=== PATIENT | female | born 1990 | race Caucasian/White ===

== ENCOUNTER 2018-07-18 00:06 | Inpatient (IN) | payer MEDICAID ==
[~2018-07-18 00:06] MED LIST: Acetaminophen 325 MG Tab PO PRN; Carboprost Tromethamine 250 MCG/1 ML Amp IM PRN; Lactated Ringers 1,000 ML IV SCH; Lidocaine 1% 30 ML SDV INJECT PRN; Methylergonovine 0.2 MG/1 ML Amp IM PRN; Misoprostol 400 MCG (4 X 100 MCG TAB) RECTAL PRN; Ondansetron 4 MG/2 ML SDV IV PRN; Oxytocin/Normal Saline 30 UNIT/500 ML BAG IV SCH; Penicillin G Potassium 5 MILLUNITS in Sodium Chloride 0.9% 100 ML IV ONE; Sodium Chloride 0.9% 10 ML Syringe FLUSH PRN; Tranexamic Acid 1,000 MG in Sodium Chloride 0.9% 100 ML IV PRN
[2018-07-18] MEDS: Lactated Ringers 1,000 ML IV SCH ×4 (01:25→20:49)
[2018-07-18] MEDS: Misoprostol 25 MCG (1/4 of 100 MCG) Tab VAG PRN ×4 (01:35→14:15)
[2018-07-18] MEDS: hydrOXYzine HCl 25 MG Tab PO PRN ×2 (01:35→11:12)
[2018-07-18] MEDS: Penicillin G Potassium 3 MILLUNITS in Sodium Chloride 0.9% 100 ML IV SCH ×3 (05:28→17:30)
[2018-07-18] MEDS ORDERED: Nalbuphine 10 MG/1 ML Vial IM ONE (17:21)
[2018-07-18] MEDS ORDERED: Penicillin G Potassium 5,000,000 Unit Vial ONE (17:36)
[2018-07-18] MEDS ORDERED: Bupivacaine 0.75%/D5W 2 ML Amp ONE (20:15)
[2018-07-18] MEDS ORDERED: fentaNYL 100 MCG/2 ML SDV ONE (20:15)
[2018-07-18] MEDS ORDERED: EPINEPHrine 1 MG/ML SDV ONE (20:16)
[2018-07-18] MEDS ORDERED: fentaNYL 100 MCG/2 ML SDV IVPUSH ONE ×2 (20:35→23:45)
--- NOTE | 2018-07-18 21:13 | PCM.SN ---
- Free Text/Narrative Note: Intrathecal. sitting position, sterile prep and drape. 1% lidocaine w bicarb for skinwheal to L2 L3, 24 ga Pencan x2, no flow. 1% lidocaine w bicarb to L3 L4 interspace, introducer, 24 ga pencan x 1. Pos CSF, neg heme, neg parasthesia. 0.1 ml 1:1000 pf epi, 20 mcg pf sufenta, 30 mcg pf fentanyl and 6 mg of 0.75 % pf bupivacaine injected after CSF aspiration. Pt to L lateral position. Procedure time 2014 to 2049
[2018-07-18] MEDS ORDERED: Docusate Sodium 100 MG Cap PO PRN (23:02)
[2018-07-18] MEDS ORDERED: Benzocaine/Menthol 20%-0.5% Spray 56 GM Canister TOP PRN (23:02)
[2018-07-18] MEDS ORDERED: Simethicone 80 MG Tab.Chew PO PRN (23:02)
[2018-07-18] MEDS: Ibuprofen 800 MG Tab PO PRN (23:48)
--- NOTE | 2018-07-19 05:34 | DEL ---
DATE: 07/18/2018 PREPROCEDURE DIAGNOSES: 1. A 39 and 0/7 weeks' intrauterine . 2. Induction of labor for poor growth. 3. History of gastric bypass. 4. Smoker. 5. History of spontaneous x1. 6. B12 deficiency. 7. High-risk due to above-listed factors. 8. Blood type B positive. Rubella immune. Group B Streptococcus positive. 9. 2, para 0-0-1-0. 10.Velamentous cord insertion. POSTPROCEDURE DIAGNOSES: 1. A 39 and 0/7 weeks' intrauterine . 2. Induction of labor for poor growth. 3. History of gastric bypass. 4. Smoker. 5. History of spontaneous x1. 6. B12 deficiency. 7. High-risk due to above-listed factors. 8. Blood type B positive. Rubella immune. Group B Streptococcus positive. 9. 2, now para 1-0-1-1. 10.Velamentous cord insertion. 11.Repair of first-degree laceration and bilateral labial lacerations. BRIEF HISTORY: A 28-year-old female with the above-listed diagnoses, was brought in for induction of labor because of concern of growth. Please see admission history and physical and records regarding growth being less than the 10th percentile and increasing discordance of growth measurements and normal cord Dopplers. After admission at midnight, she had a total of 4 doses of Cytotec and then proceeded on into normal labor. At approximately 6 to 7 cm dilated, she received an intrathecal for pain management. She had also previously had a dose of Vistaril earlier in the day, Nubain in the evening, and just prior to the intrathecal 50 mcg of fentanyl because she was unable to hold still for the intrathecal. After that, she continued to proceed through labor quite well and baby tolerated well. There was a period of about 4 minutes of bradycardia, which resolved with oxygen, fluid bolus, and turning her on her side. After reaching complete, the baby was essentially with bag of vergara intact and protruding from the vagina. She was set up for delivery, and after pushing for probably 20 minutes, we had a successful vaginal delivery. Details below. DESCRIPTION OF PROCEDURE: With the patient in dorsal supine position, she delivered a viable female in the OA position over an intact perineum. Amniotic fluid sac ruptured at the same time that the baby's head was being delivered. was dried, stimulated, and mouth and nose were bulb suctioned. Baby had poor respiratory effort, and 3-vessel umbilical cord was doubly clamped and cut, and baby taken over to the warmer prior to 45 seconds of life, and nurses attended to the baby, and Dr. Lazar was also called in to assist and arrived within the first 3 minutes or so of life. Cord blood sample obtained. The placenta was being expressed, and velamentous cord insertion was known, therefore, I manually removed the placenta from the vaginal vault, inspected it, and it was intact. The umbilical vessels remained attached to the membranous side of the placenta. Prior to delivery of that, I had collected cord blood sample. The labia and vagina were inspected, and there was significant bleeding from the right sidewall laceration. This was made hemostatic with [id number] 3-0 Vicryl suture. Same stitch was then used to repair a small vaginal tear of approximately 1 cm. Another stitch of 3-0 Vicryl was used to repair each of the bilateral labial lacerations as well as a small first-degree midline laceration. Hemostasis was noted, and repair was cosmetically satisfactory. The patient tolerated well. No additional anesthesia was needed. Mother and baby were in good condition. ESTIMATED BLOOD LOSS: 400 mL. COMPLICATIONS: None. FINDINGS: Viable female infant. scores of 2, 6, and 9. Weight 2875 grams. DISPOSITION: Mother and baby staying in the room at this time. Mother will start . [facility] /[id number] DIOMEDES
[2018-07-19] MEDS: Penicillin G Potassium 3 MILLUNITS in Sodium Chloride 0.9% 100 ML IV SCH (06:21)
[2018-07-19] MEDS: Ferrous Sulfate 325 MG Tab PO SCH (08:38)
[2018-07-19] MEDS: Prenatal Multivitamin with Calcium/Folic Acid/Iron Tab PO SCH (08:38)
[2018-07-19] MEDS: Ibuprofen 800 MG Tab PO PRN ×2 (08:39→20:57)
[2018-07-19] MEDS ORDERED: Bupivacaine 0.75%/D5W 2 ML Amp INJECT ONE (11:01)
[2018-07-19] MEDS ORDERED: fentaNYL 100 MCG/2 ML SDV ITHECAL ONE (11:01)
[2018-07-19] MEDS ORDERED: EPINEPHrine 1 MG/ML SDV IV ONE (11:01)
--- NOTE | 2018-07-19 21:05 | PN ---
DATE: 07/19/2018 SUBJECTIVE: day #1, status post uncomplicated vaginal delivery with bilateral labial laceration repair as well as first-degree laceration repair. Mother overall has done well through the night. She is up and ambulating, tolerating regular diet, has not had a bowel movement since labor. She has difficulty with voiding. She has been unable to void spontaneously and was straight catheterized for 900 mL. Currently does not have the urge to void and is taking fluids well. No chest pain or shortness of breath. No symptoms of preeclampsia. Bleeding has been well managed and cramping controlled. She is her infant, but having some difficulties, therefore working with a outside sales consultant. OBJECTIVE: General: A well-appearing 28-year-old female. Vital Signs: Temperature is 98.9, pulse 72, blood pressure 113/55, and respiratory rate of 18. Heart: Regular without murmur. Lungs: Clear to auscultation bilaterally. Abdomen: Soft and nontender. Fundus is firm and below the umbilicus. Extremities: No edema, erythema, or tenderness noted. LABORATORY DATA: Hemoglobin is down to 8.9 from a previous 10.4 and platelets down to 171 from a previous 297. ASSESSMENT: 1. day #1, status post spontaneous vaginal delivery. 2. Urinary retention. 3. Obesity. 4. Smoker. 5. B12 deficiency. 6. History of gastric bypass. 7. Anemia of and acute blood loss. PLAN: Continue normal cares. Continue to assess her intake and output and her ability to void spontaneously. Straight catheterize again as necessary. Anticipate that as she is able to have the intrathecal wear off and the swelling that may be present since delivery resolves, she will start voiding on her own again. Dr. Cordova was updated as to the status of this, and he will be covering over the weekend in my absence. [facility] /[id number] DIOMEDES
[2018-07-20] MEDS: Ferrous Sulfate 325 MG Tab PO SCH (08:43)
[2018-07-20] MEDS: Ibuprofen 800 MG Tab PO PRN (08:44)
[2018-07-20] MEDS: Prenatal Multivitamin with Calcium/Folic Acid/Iron Tab PO SCH (08:44)
--- NOTE | 2018-07-20 11:44 | PCM.PNPP ---
- General Info Date of Service: 07/20/18 (PPD # 2 S/P ) Functional Status: Reports: Pain Controlled, Tolerating Diet, Ambulating, Urinating - Review of Systems General: Reports: No Symptoms HEENT: Reports: No Symptoms Pulmonary: Reports: No Symptoms Cardiovascular: Reports: No Symptoms Gastrointestinal: Reports: No Symptoms Genitourinary: Reports: No Symptoms Musculoskeletal: Reports: No Symptoms Skin: Reports: No Symptoms Neurological: Reports: No Symptoms Psychiatric: Reports: No Symptoms - General Info Date of Service: 07/20/18 (PPD # 2 S/P ) - Patient Data Vital Signs - Most Recent: Last Vital Signs Temp 98.4 F 07/20/18 08:00 Pulse 78 07/20/18 08:00 Resp 18 07/20/18 08:00 BP 106/65 07/20/18 08:00 Pulse Ox 98 07/20/18 08:00 Weight - Most Recent: 237 lb I&O - Last 24 Hours: Intake & Output 07/19/18 07/20/18 07/20/18 22:59 06:59 14:59 Output Total 300 Balance -300 Med Orders - Current: Current Medications Acetaminophen (Tylenol) 650 mg PO Q4H PRN PRN Reason: Pain (Mild 1-3) and fever Last Admin: 07/19/18 05:57 Dose: 650 mg Benzocaine/Menthol (Dermoplast Pain Relief [place]) 0 gm TOP Q4H PRN PRN Reason: Perineal comfort measures Last Admin: 07/19/18 05:58 Dose: 1 spray Docusate Sodium (Colace) 100 mg PO BID PRN PRN Reason: Constipation Last Admin: 07/18/18 23:49 Dose: 100 mg Ferrous Sulfate (Ferrous Sulfate) 325 mg PO WITHBREAKFAST DIANA Last Admin: 07/20/18 08:43 Dose: 325 mg Oxytocin/Sodium Chloride (Pitocin In Ns 30 Unit/500 Ml) 30 unit in 500 mls @ 2 mls/hr IV TITRATE DIANA; Protocol Last Titration: 07/18/18 23:15 Dose: 125 munits/min, 125 mls/hr Tranexamic Acid 1,000 mg/ (Sodium Chloride) 110 mls @ 660 mls/hr IV ONETIME PRN PRN Reason: Bleeding Ibuprofen (Motrin) 800 mg PO Q8H PRN PRN Reason: Mild Pain or Fever Last Admin: 07/20/18 08:44 Dose: 800 mg Methylergonovine Maleate (Methergine) 0.2 mg IM ASDIRECTED PRN PRN Reason: Hemorrhage Misoprostol (Cytotec) 800 mcg RECTAL ASDIRECTED PRN PRN Reason: Hemorrhage Prenat Multivit/Bay/Iron/Folic Ac ( Plus Iron) 1 each PO DAILY DIANA Last Admin: 07/20/18 08:44 Dose: 1 each Simethicone (Simethicone) 80 mg PO Q4H PRN PRN Reason: Gas Discontinued Medications Acetaminophen (Tylenol) 650 mg PO Q4H PRN PRN Reason: Pain/Fever Bupivacaine HCl/Dextrose (Marcaine 0.75% Spinal) Confirm Administered Dose 2 ml .ROUTE .STK-MED ONE Stop: 07/18/18 20:16 Last Admin: 07/19/18 02:15 Dose: Not Given Bupivacaine HCl/Dextrose (Marcaine 0.75% Spinal) 0.8 ml INJECT .STK-MED ONE Stop: 07/19/18 11:02 Carboprost Tromethamine (Hemabate Ds) 250 mcg IM ASDIRECTED PRN PRN Reason: HEMORRHAGE Epinephrine HCl (Adrenalin) Confirm Administered Dose 1 mg .ROUTE .STK-MED ONE Stop: 07/18/18 20:17 Last Admin: 07/19/18 02:16 Dose: Not Given Epinephrine HCl (Adrenalin) 0.1 mg IV .STK-MED ONE Stop: 07/19/18 11:02 Fentanyl (Sublimaze) Confirm Administered Dose 100 mcg .ROUTE .STK-MED ONE Stop: 07/18/18 20:16 Last Admin: 07/19/18 02:15 Dose: Not Given Fentanyl (Sublimaze) 50 mcg IVPUSH ONETIME ONE Stop: 07/18/18 20:36 Last Admin: 07/18/18 20:35 Dose: 50 mcg Fentanyl (Sublimaze) 50 mcg IVPUSH ONETIME ONE Stop: 07/18/18 23:46 Last Admin: 07/19/18 03:23 Dose: Not Given Fentanyl (Sublimaze) 30 mcg ITHECAL .STK-MED ONE Stop: 07/19/18 11:02 Hydroxyzine HCl (Atarax) 50 mg PO QID PRN PRN Reason: Pain Last Admin: 07/18/18 11:12 Dose: 50 mg Lactated Ringer's (Ringers, Lactated) 1,000 mls @ 999 mls/hr IV ASDIRECTED DIANA Lactated Ringer's (Ringers, Lactated) 1,000 mls @ 125 mls/hr IV ASDIRECTED DIANA Last Admin: 07/18/18 20:49 Dose: 125 mls/hr Penicillin G Potassium 5 (millunits/ Sodium Chloride) 100 mls @ 200 mls/hr IV ONETIME ONE Stop: 07/18/18 00:30 Last Admin: 07/18/18 01:36 Dose: 200 mls/hr Penicillin G Potassium 3 (millunits/ Sodium Chloride) 100 mls @ 200 mls/hr IV Q4H [facility] Last Admin: 07/18/18 12:19 Dose: Not Given Penicillin G Potassium 3 (millunits/ Sodium Chloride) 100 mls @ 200 mls/hr IV Q4H [facility] Last Admin: 07/19/18 06:21 Dose: Not Given Lidocaine HCl (Xylocaine-Mpf 1%) 10 ml INJECT ASDIRECTED PRN PRN Reason: Perineal Repair Lidocaine HCl (Xylocaine-Mpf 1%) 5 ml INJECT .STK-MED ONE Stop: 07/19/18 11:02 Misoprostol (Cytotec) 25 mcg VAG Q4H PRN PRN Reason: cervical ripening Last Admin: 07/18/18 14:15 Dose: 25 mcg Nalbuphine HCl (Nubain) 20 mg IM ONETIME ONE Stop: 07/18/18 17:22 Last Admin: 07/18/18 17:30 Dose: 20 mg Ondansetron HCl (Zofran) 4 mg IV Q4H PRN PRN Reason: Nausea/Vomiting Last Admin: 07/18/18 20:12 Dose: 4 mg Penicillin G Potassium (Pfizerpen) Confirm Administered Dose 5 millunits .ROUTE .STK-MED ONE Stop: 07/18/18 17:37 Last Admin: 07/18/18 18:01 Dose: Not Given Sodium Bicarbonate (Sodium Bicarbonate 4.2%) Confirm Administered Dose 5 meq .ROUTE .STK-MED ONE Stop: 07/18/18 20:17 Last Admin: 07/19/18 02:16 Dose: Not Given Sodium Bicarbonate (Sodium Bicarbonate 4.2%) 0.5 meq .XX .STK-MED ONE Stop: 07/19/18 11:02 Sodium Chloride (Saline Flush) 10 ml FLUSH ASDIRECTED PRN PRN Reason: Keep Vein Open Sufentanil Citrate (Sufenta) Confirm Administered Dose 50 mcg .ROUTE .STK-MED ONE Stop: 07/18/18 20:17 Last Admin: 07/19/18 02:16 Dose: Not Given Sufentanil Citrate (Sufenta) 20 mcg ITHECAL .STK-MED ONE Stop: 07/19/18 11:02 - Infant Interaction Disposition, : Moss in Room with Family Interaction: Holding Infant Infant Feeding: Breastfed Infant; Nursed Well, Continues to Breastfeed Support Person: Significant Other - Recovery Exam Fundal Tone: Firm Fundal Level: 1 Fingerbreadths Below Umbilicus Fundal Placement: Midline Lochia Amount: Scant Lochia Color: Brownish Perineum Description: Intact, Minimal Bruising/Swelling Episiotomy/Laceration: Approximated Bladder Status: Voiding - Exam General: Alert, Oriented, Cooperative, No Acute Distress HEENT: Pupils Equal, Pupils Reactive, EOMI, Mucous Membr. Moist/[place] Neck: Supple Lungs: Clear to Auscultation, Normal Respiratory Effort Cardiovascular: Regular Rate, Regular Rhythm, No Murmurs GI/Abdominal Exam: Normal Bowel Sounds, Soft, Non-Tender, No Distention Extremities: Normal Inspection, Normal Range of Motion, No Pedal Edema Skin: Warm, Dry, Intact Neurological: No New Focal Deficit Psy/Mental Status: Alert, Normal Affect, Normal Mood - Problem List Review Problem List Initiated/Reviewed/Updated: Yes - My Orders Last 24 Hours: My Active Orders 07/20/18 11:26 Ready for Discharge [RC] PER UNIT ROUTINE - Assessment Assessment:: PPD # 2 S/P Doing well - Plan Plan:: Discharge to home Follow-up with Dr. Noble at 6 week check-up All questions answered.
--- NOTE | 2018-07-20 13:40 | DISCH ---
INDICATION FOR ADMISSION: Ms. Herr is a 28-year-old, 2, para 0-0-1- 0 female, who reported to [facility] for induction of labor secondary to poor growth. The fetus was in less than the 10th percentile, and there is increasing discordance of growth, so she was admitted and had 4 doses of misoprostol cervical ripening. The patient received penicillin G IV per group B strep protocol. She then proceeded into active labor. Once she was 6 to 7 cm dilated, she received intrathecal for pain control. Once she got to complete, spontaneous rupture of membranes occurred with clear fluid. She had a normal spontaneous vaginal delivery of a viable female infant, weighing 6 pounds 5 ounces, 19 inches long, with scores of 2 at 1 minute, 6 at 5 minutes, and 9 at 10 minutes. This was over an intact perineum. There was noted to be a velamentous cord insertion. The cord was clamped and cut. The infant was handed off to the nurses in attendance. A small vaginal laceration was repaired with 3-0 Vicryl suture along with a small first-degree midline perineal laceration. She had 400 mL blood loss. She tolerated her recovery quite well. No complications occurred throughout her hospital stay. She was afebrile. Vital signs were stable. She tolerated her diet well and ambulated quite well. She had minimal lochia. She breastfed her baby quite nicely. She was ready for discharge on day #2. LABORATORY AND DIAGNOSTIC STUDIES: On 07/18/2018, WBC 12.0, hemoglobin 10.4, hematocrit 31.5, and platelet count 297,000. On 07/19/2018, WBC 16.0, hemoglobin 8.9, hematocrit 27.3, and platelet count 171,000. DISCHARGE INSTRUCTIONS: 1. Discharged to home. 2. Follow up with Dr. Delmer Castillo next week with for evaluation, then in 6-week checkup. 3. vitamin 1 tablet daily. 4. Iron 1 tablet twice a day. 5. Ibuprofen 800 mg 1 tablet t.i.d. p.r.n. for discomfort. 6. Discharge instructions including activity, followup, medications, diet, and wound care were discussed with the patient. She understood these and is willing to comply with these. 7. No douching, tampons, or intercourse for 6 weeks. DISCHARGE DIAGNOSES: 1. A 39-week intrauterine . 2. Poor growth. 3. History of gastric bypass surgery. 4. Nicotine addiction. 5. B12 deficiency. 6. Chronic anemia of . 7. Group B streptococcus positive. 8. Induction of labor with Cytotec cervical ripening. 9. Spontaneous rupture of membranes. 10.Normal spontaneous vaginal delivery of a viable female weighing 6 pounds 5 ounces and 19 inches long with scores of 2 at 1 minute, 6 at 5 minutes, and 9 at 10 minutes. 11.Intrathecal anesthesia. 12.Acute anemia secondary to blood loss. 13.First-degree perineal laceration. [facility] /[id number]
== END 2018-07-20 12:05 | disposition home or self-care (01) | DRG 775 ==
LOC: DL.OB 00:06 → OBSVTOIN 21:59 → EDSTATUS 08-04 16:36
PROVIDERS: ADMIT Family Medicine; ATTEND Family Medicine
PROC: 10E0XZZ Delivery of Products of Conception, External Approach (ICD-10-PCS; principal; 2018-07-18)
PROC: 6A550ZT Pheresis of Cord Blood Stem Cells, Single (ICD-10-PCS; principal; 2018-07-18)
PROC: 3E033VJ Introduction of Other Hormone into Peripheral Vein, Percutaneous Approach (ICD-10-PCS; 2018-07-18)
PROC: 3E0R3BZ Introduction of Anesthetic Agent into Spinal Canal, Percutaneous Approach (ICD-10-PCS; 2018-07-18)
PROC: 0HQ9XZZ Repair Perineum Skin, External Approach (ICD-10-PCS; 2018-07-18)
PROC: 0UQMXZZ Repair Vulva, External Approach (ICD-10-PCS; 2018-07-18)
DX: O36.5930 Maternal care for other known or suspected poor fetal growth, third trimester, not applicable or unspecified (principal); Z3A.39 39 weeks gestation of pregnancy; Z37.0 Single live birth; O99.334 Smoking (tobacco) complicating childbirth; F17.210 Nicotine dependence, cigarettes, uncomplicated; O70.0 First degree perineal laceration during delivery; E53.8 Deficiency of other specified B group vitamins; Z98.84 Bariatric surgery status; Z67.20 Type B blood, Rh positive; O99.824 Streptococcus B carrier state complicating childbirth; O43.123 Velamentous insertion of umbilical cord, third trimester; O99.214 Obesity complicating childbirth; E66.9 Obesity, unspecified; Z68.35 Body mass index [BMI] 35.0-35.9, adult
CPT/HCPCS: 01967; 36415; 51701; 59409; 81001; 83986; 85027; A9270-GY; J0171; J2300; J2405; J2540; J2590; J3010; J7050; J7120

== ENCOUNTER 2022-09-07 09:23 | Emergency (ER) | payer MEDICAID | END 2022-09-07 10:12 | disposition home or self-care (01) | LOC: DL.ED 09:23 | DX: S93.402A Sprain of unspecified ligament of left ankle, initial encounter (principal); Z79.899 Other long term (current) drug therapy; X50.1XXA Overexertion from prolonged static or awkward postures, initial encounter | CPT/HCPCS: 73610-LT; 99283 ==

== ENCOUNTER 2023-09-28 09:06 | Emergency (ER) | payer MEDICAID ==
[2023-09-28] MEDS ORDERED: Ketorolac 30 MG/ML SDV IM ONE (09:29)
== END 2023-09-28 09:47 | disposition home or self-care (01) ==
LOC: DL.ED 09:06
DX: M62.830 Muscle spasm of back (principal); M54.12 Radiculopathy, cervical region; K21.9 Gastro-esophageal reflux disease without esophagitis; Z79.899 Other long term (current) drug therapy
CPT/HCPCS: 96372; 99283; J1885